=== PATIENT | male | born 1965 | race Caucasian/White ===

== ENCOUNTER → 2021-07-14 | Outpatient (CLI) | payer OTHER ==
[~2021-07-14] MED LIST: ASPIRIN81 MG PO; CELEBREX200 MG PO; LISINOPRIL10 MG PO; PRILOSEC OTC20 MG PO; ULTRAM 50MG50 MG PO
== END ==
LOC: RAD 15:33
PROVIDERS: ATTEND Family Medicine
DX: R06.02 Shortness of breath (principal)
CPT/HCPCS: 71046